=== PATIENT | female | born 1960 | race Caucasian/White ===

== ENCOUNTER 2018-06-15 05:03 | Inpatient (IN) ==
--- NOTE | 2018-05-23 08:53 | PAT Medication Instructions ---
Medication Instructions Date of Service May 23, 2018 Home Medications Magnesium 1,250 mg PO DAILY cholecalciferol (vitamin D3) 2,000 unit PO DAILY krill oil 1 cap PO DAILY multivitamin 1 tab PO DAILY vitamin B complex 1 tab PO DAILY vitamin K2 40 mcg PO DAILY STOP taking 2 weeks before surgery (or as soon as possible if surgery is within 2 weeks) krill oil 1 cap PO DAILY DO NOT take the morning of surgery Magnesium 1,250 mg PO DAILY cholecalciferol (vitamin D3) 2,000 unit PO DAILY multivitamin 1 tab PO DAILY vitamin B complex 1 tab PO DAILY vitamin K2 40 mcg PO DAILY Other Notes If you have any questions please call us at [phone] or [phone] or [phone] or [phone]
--- NOTE | 2018-05-23 10:30 | Anesthesiology Consultation ---
Date of Service May 23, 2018 Assessment & Plan (1) Encounter for pre-operative examination: Chart Review Chart Review: Acceptable Risk for Surgery and Patient seen in Pre Admission Testing Teaching & Discussion Pre-Anesthesia Teaching/Discussion Notes: Instructed NPO after midnight before surgery,except medications with 15 cc of water. Medication instructions provided according to the PAT guidelines. History Surgery Operation Date: 06/15/18 07:00 Proposed Procedures p Right Anterior Total Hip Replacement - Bryan Mauricio DO Height/Weight Height: 5 ft 6.5 in Weight: 94.9 kg Allergies Allergy/AdvReac Type Severity Reaction Status Date / Time Penicillins Allergy Intermediate RASH, Verified 05/23/18 10:31 FACIAL SWELLING poison gabriel extract Allergy Mild RASH Verified 05/23/18 10:31 lisinopril AdvReac Mild COUGH Verified 05/23/18 10:31 Medications Home Medications Medication Instructions Recorded Confirmed Last Taken Magnesium 1,250 mg PO DAILY 05/14/18 05/14/18 Unknown cholecalciferol (vitamin D3) 2,000 unit PO DAILY 05/14/18 05/14/18 Unknown [Vitamin D3] krill oil 1 cap PO DAILY 05/14/18 05/14/18 Unknown multivitamin 1 tab PO DAILY 05/14/18 05/14/18 Unknown vitamin B complex 1 tab PO DAILY 05/14/18 05/14/18 Unknown vitamin K2 40 mcg PO DAILY 05/14/18 05/14/18 Unknown Past Medical History Medical History Hypertension PRIOR BP MEDS DISCONTINUED GIVEN "GOOD" BP READINGS- PCP MONITORING Obesity Osteoarthritis Sleep apnea CPAP Uterine fibroid Varicose veins of left lower extremity Past Surgical History Surgical History History of hysterectomy History of tooth extraction History of total hip arthroplasty LEFT Past Anesthesia History No Family Hx of Anesthesia Complications and Other "Awareness" with dental procedures History of PONV No Motion Sickness Screening History of Motion Sickness: Yes Social History Smoking Status: Never smoker Do You Dip or Chew Tobacco: No Hx Alcohol Use: No Hx Substance Use: No substance use type: does not use Exercise / Class Metabolic Activity II 4-5 Yardwork/Stairs/Walk up hill Review of Systems Patient denies chest pain, shortness of breath, dyspnea on exertion, cough, wheezing, palpitations. Physical Exam Vital Signs VITALS BP 157/83 P 66 TEMP 98.31 SP02 95%RA RESP 16 Patient advised to followup with PCP regarding elevated BP. PHYSICAL Full neck and c-spine range of motion. Full TMJ range of motion. TMD 3 finger breaths Mallampati Score 2 Dentition: intact Lungs: clear throughout to auscultation Cardiac: regular rate and rhythm, no murmurs noted Spine: normal Carotid arteries: negative bruit Extremities: no edema Testing Electrocardiogram Date: 05/23/18 NSR at 63bpm. NS TWA. Chest X-Ray Date: 05/23/18 Findings: + NAD Stress Test Date: 07/16/12 Type: DSE Nonischemic stress ECHO/EKG. EF 60-65%. No RWMA. Grade I DD. No significant valvular disease. Laboratory Results 05/23/18 10:51 05/23/18 10:51 Blood Type O Positive 05/23/18 10:51 Antibody Screen NEGATIVE 05/23/18 10:51 PT 10.8 Seconds (9.0-12.0) 05/23/18 10:51 INR 1.1 (0.9-1.1) 05/23/18 10:51 APTT 28.6 Seconds (21.0-31.0) 05/23/18 10:51
--- NOTE | 2018-05-23 11:30 | XRay Report ---
XR chest Pre-admission PA/Lat HISTORY: Preop. COMPARISON: Chest 03/16/2014. FINDINGS: The lungs are clear. Cardiac silhouette is normal in size. No pleural effusions. No pneumot horax. IMPRESSION: No acute process. Electronically signed by: Marco Vázquez M.D. 05/23/2018 11:29 AM
[2018-05-23 12:38] LABS: Basophils # (auto) 0.03 K/uL (0-0.2); Basophils % (auto) 0.4 %; Eosinophils # (auto) 0.19 K/uL (0-0.5); Eosinophils % (auto) 2.4 %; Hematocrit (blood only) 40.4 % (37-47); Hemoglobin 13.3 g/dL (12.0-16.0); Immature Granulocytes # (auto) 0.01 K/uL (0.00-0.02); Immature Granulocytes % (auto) 0.1 %; Lymphocytes # (auto) 2.54 K/uL (1.2-3.4); Lymphocytes % (auto) 31.8 %; Mean Corpuscular Hgb Conc 32.9 g/dL (32-36); Mean Corpuscular Volume 91.8 fL (80-100); Mean Platelet Volume 10.7 fL (7.4-10.4); Monocytes # (auto) 0.82 K/uL (0.11-0.59); Monocytes % (auto) 10.3 %; Neutrophils # (auto) 4.39 K/uL (1.4-6.5); Platelet Count 269 K/uL (130-400); RDW Coefficient of Variation 13.2 % (11.5-14.5); RDW Standard Deviation 44.5 fL (36.4-46.3); White Blood Count 7.98 K/uL (4.8-10.8)
[2018-05-23 12:45] LABS: BUN Creatinine Ratio 16.4 (10-20); Creatinine Clr Calc Pharmacy 94.5 ml/min; Est GFR (African American) 99.3; Est GFR (Non-African American) 85.7; Potassium 4.1 mmol/L (3.5-5.1)
[2018-05-23 12:52] LABS: INR 1.1 (0.9-1.1); Partial Thromboplastin Ratio 1.1; Partial Thromboplastin Time 28.6 Seconds (21.0-31.0); Prothrombin Time 10.8 Seconds (9.0-12.0)
--- NOTE | 2018-06-13 20:45 | History & Physical Report ---
Date of Service June 13, 2018 Assessment & Plan (1) Osteoarthritis of right hip: We will proceed with a right anterior total hip arthroplasty. Postoperatively she will be started on aspirin for DVT prophylaxis. She will be kept overnight at the hospital for postop medical management. She plans to use energy physical therapy upon discharge. Present on Admission?: Yes History of Present Illness Chief Complaint: Primary osteoarthritis of the right hip Primary Care Provider: Kris Garcia MD Caitie is a pleasant 58-year-old female who is been dealing with chronic increasing right hip and groin pain. X-rays and clinical examination have been diagnostic for primary osteoarthritis of the right hip. After failing conservative treatment, she is elected proceed with a right total hip arthroplasty. She does have a history of a left hip arthroplasty done by Dr. Johnson 4 years ago. Allergies Allergy/AdvReac Type Severity Reaction Status Date / Time Penicillins Allergy Intermediate RASH, Verified 05/23/18 10:31 FACIAL SWELLING poison gabriel extract Allergy Mild RASH Verified 05/23/18 10:31 lisinopril AdvReac Mild COUGH Verified 05/23/18 10:31 Home Medications Home Medications Medication Instructions Recorded Confirmed Type Magnesium 1,250 mg PO DAILY 05/14/18 05/14/18 History cholecalciferol (vitamin D3) 2,000 unit PO DAILY 05/14/18 05/14/18 History [Vitamin D3] krill oil 1 cap PO DAILY 05/14/18 05/14/18 History multivitamin 1 tab PO DAILY 05/14/18 05/14/18 History vitamin B complex 1 tab PO DAILY 05/14/18 05/14/18 History vitamin K2 40 mcg PO DAILY 05/14/18 05/14/18 History Metoprolol 1 tab PO DAILY 06/11/18 History Past Med/Surg History Medical History Hypertension PRIOR BP MEDS DISCONTINUED GIVEN "GOOD" BP READINGS- PCP MONITORING Obesity Osteoarthritis Sleep apnea CPAP Uterine fibroid Varicose veins of left lower extremity Surgical History History of hysterectomy History of tooth extraction History of total hip arthroplasty LEFT Social History Preferred Language: Sinhala Communication Ability: Effective 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 Beliefs That Will Affect Care: None Current Living Situation: Spouse Other Information That Helps Us Care for You: No Feels Safe at Home: Yes Safety Concerns: Feels Safe At This Time Smoking Status: Never smoker Hx Alcohol Use: No Hx Substance Use: No Review of Systems All systems reviewed & are unremarkable except as noted in HPI & below Physical Exam Constitutional: WD/WN, vitals as above Eyes: PERRL, conjunctivae normal, anicteric sclerae ENMT: external ear and nose normal, oropharynx normal Neck: trachea midline, no thyromegaly Respiratory: normal respiratory effort Cardiovascular: RRR, no murmur, no edema Gastrointestinal (Abdomen): normal bowel sounds, soft, nontender, no hepatosplenomegaly Musculoskeletal: Physical examination of the right hip reveals decreased range of motion with flexion, internal and external rotation. There is significant groin pain with forced internal rotation of the hip his leg lengths are essentially equal. Psychiatric: A+Ox3, euthymic affect Results & Data Diagnostic Findings Radiographs of the right hip and pelvis demonstrate advanced osteoarthritis with joint space narrowing osteophyte formation and [id number] articulation.
[2018-06-15] MEDS ORDERED: ROPIVACAINE 0.5% HCL/PF 150 MG, BUPIVACAINE 0.5% MPF 30 ML, EPINEPHrine 30MG/30ML (OR U... INFIL SCH (06:00)
[2018-06-15] MEDS ORDERED: CEFAZOLIN 2000MG 2,000 MG/15 ML SYR IV SCH (06:00)
[2018-06-15] MEDS ORDERED: ACETAMINOPHEN 500 MG TAB PO SCH (06:00)
[2018-06-15] MEDS ORDERED: LR 60ML/HR IV SCH (06:00)
[2018-06-15] MEDS ORDERED: LR 500ML BOLUS, THEN 15ML/HR IV SCH (06:00)
[2018-06-15] MEDS ORDERED: FAMOTIDINE 20 MG TAB PO SCH (06:00)
[2018-06-15] MEDS ORDERED: GABAPENTIN 300 MG x 2 PO SCH (06:00)
[2018-06-15] MEDS ORDERED: TRANEXAMIC ACID 1,000 MG **IV Pre-op IV SCH (06:00)
[2018-06-15] MEDS ORDERED: BUPIVACAINE 0.5 % 5 MG/1 ML PF 10ML VIAL ONE (06:21)
--- NOTE | 2018-06-15 06:21 | History & Physical Bridge Note ---
Date of Service June 15, 2018 History & Physical Bridge Note I have examined the patient, reviewed the History & Physical and in the interval since the performance of the History & Physical I have noted the following changes of clinical significance: no changes noted
[2018-06-15] MEDS ORDERED: ORTHO JOINT ANESTHETIC ONE (06:27)
[2018-06-15] MEDS ORDERED: POVIDONE-IODINE OP SOLN 30 ML BTL ONE (06:27)
[2018-06-15] MEDS ORDERED: PROPOFOL IV EMULSION 10 MG/ML 20 ML VIAL IV ONE ×2 (06:36→08:12)
[2018-06-15] MEDS ORDERED: MIDAZOLAM HCL 1 MG/ML 2ML VIAL ONE ×2 (06:36→07:22)
[2018-06-15] MEDS ORDERED: LIDOCAINE HCL 2% 2 ML VIAL/AMP(20MG/ML) INFIL ONE (06:36)
[2018-06-15] MEDS ORDERED: fentaNYL citrate 100 MCG/2 ML VIAL ONE (06:36)
[2018-06-15] MEDS ORDERED: DEXAMETHASONE SOD INJ 4 MG/ML VIAL ONE (06:37)
[2018-06-15] MEDS ORDERED: ONDANSETRON INJ 2 MG/ML 2 ML VIAL ONE (06:37)
[2018-06-15] MEDS: TRANEXAMIC ACID 1,000 MG **IV Intra-op IV SCH ×2 (06:45→10:24)
[2018-06-15] MEDS ORDERED: PHENYLEPHRINE 100MCG/ML 5ML SYR IV PRN (07:00)
[2018-06-15] MEDS ORDERED: ONDANSETRON INJ 2 MG/ML 2 ML VIAL IV PRN ×2 (07:00→09:58)
[2018-06-15] MEDS ORDERED: HYDROmorphone INJ 1 MG/ML SYRINGE IV PRN (07:00)
[2018-06-15] MEDS ORDERED: ePHEDrine sulfate 50 MG/ML AMP IV PRN (07:00)
[2018-06-15] MEDS ORDERED: KETOROLAC 30 MG/ML VIAL IV PRN (07:00)
[2018-06-15] MEDS ORDERED: ATROPINE SULFATE 0.1 MG/ML 10ML SYR IV PRN (07:00)
[2018-06-15] MEDS ORDERED: PHENYLEPHRINE HCL 10 MG/ML VIAL ONE (07:48)
[2018-06-15] MEDS ORDERED: ePHEDrine sulfate 50 MG/ML SYR ONE (07:48)
--- NOTE | 2018-06-15 08:24 | Operative Report ---
Post Operative Report Pre & Post Diagnosis Operation Date: 06/15/18 07:00 Pre-Op Diagnosis: Right Hip Degenerative Joint Disease Post-Op Diagnosis: Right Hip Degenerative Joint Disease Procedure Operation Date: 06/15/18 07:00 Actual Procedures p Right Anterior Total Hip Replacement(Right) - Bryan Mauricio DO Surgeon Bryan Mauricio DO Certified Orthotist Practice Manager Bryan Rizzo PAC Estimated Blood Loss 150 Findings Consistent with Post-Op Diagnosis Specimens None Complications none Disposition Disposition: Recovery Room Indications 8-year-old female who is been dealing with chronic increasing right hip and groin pain. X-rays and clinical examination were diagnostic for primary osteoarthritis of the right hip. After failing conservative treatment, she has elected to proceed with a right total hip arthroplasty. Description of Procedure Implants used Biomet Taperloc total hip arthroplasty system with a size 14 standard offset Taperloc stem, a 52 mm G7 cup with a 25mm screw, an E1 polyethylene liner, a 36 mm ceramic head with a +3 neck. Patient arrived at the hospital for the above procedure. They were seen in the preoperative holding area and the operative extremity was identified and signed. They were given a spinal anesthetic. They were given a preoperative antibiotic and TXA. They were taken back To the operating room and laid on the table in the supine position. The leg was brought out through a Puristst leg positioner. The hip was then prepped and draped in sterile fashion. A timeout was done and the patient in upper extremities properly identified. An anterior approach was used. Dissection was taken down through the fascia and the tensor muscle belly was retracted laterally and the rectus was retracted medially. The circumflex vessels were identified and ligated. The capsule was then incised and tagged for later repair. The femoral neck was then cut and the femoral head was removed. The acetabulum was exposed. Time was spent doing a complete circumferential labral release. Sequential reaming of the acetabulum up to a size 51 reamer was done. Final reamings were done under fluoroscopy to ensure appropriate version. A Biomet 52 mm G7 cup was then impacted into place. A single 25 mm screw was placed. The E1 polyethylene liner was then snapped into place. Surrounding soft tissues were then injected with 100 cc of an orthopedic pain control cocktail. The proximal femur was then exposed. Sequential broaching up to a size 14 broach was done. Off that broach a size 36 head with a +3 neck was trialed. The hip was reduced and fluoroscopic images showed anatomic alignment of the imp lants in acceptable length. The broach was removed. The final size 14 standard offset Taperloc stem was then impacted into place. A ceramic 36 mm head with a +3 neck was then impacted into place in the hip was reduced. Final fluoroscopic images showed anatomic reduction of the hip. The capsule was then closed with #1 Vicryl suture. A dilute betadyne lavage was then done for 3 minutes. The j oint was then irrigated with normal saline solution. The fascia was closed with #1 PDS suture. Skin was closed with 2-0 Vicryl, gianna, and a Mary VAC dressing. The patient was then transferred to a hospital bed and taken to the post anesthesia care unit in stable condition. They tolerated the procedure well. I attest to the content of the Intraoperative Record and any orders documented therein. Any exceptions are noted below.
--- NOTE | 2018-06-15 08:30 | Fluoroscopy Report ---
INTRAOPERATIVE RADIOGRAPHS CLINICAL HISTORY: Right hip arthroplasty placement. Fluoroscopy time: 19 seconds. FINDINGS: 2 spot fluoroscopic views of the right hip are correlated with radiograph dated 07/18/2012. The initial image shows surgical absence of the proximal femur with the acetabular cup in place. The second image shows a right hip arthroplasty in near anatomic alignment. There is no evidence of fract ure on these fluoroscopic views. IMPRESSION: Intraoperative images from a right humeral arthroplasty procedure as above. Electronically signed by: Phi Sotomayor M.D. 06/15/2018 8:29 AM
--- NOTE | 2018-06-15 09:37 | XRay Report ---
XR hip 1V RT w pelvis CLINICAL HISTORY: 58 years-old Female presenting with IN PACU - A/P PELVIS and LATERAL HIP . TECHNIQUE: Single frontal view of the pelvis and crosstable lateral view of the right hip were obtain ed. COMPARISON: 07/18/2012. FINDINGS: There has been interval total right hip arthroplasty. Expected soft tissue emphysema and overlying sk in gianna. No malalignment or periprosthetic fracture. Redemonstration of the total left hip arthrop lasty. The bony pelvis is otherwise intact. IMPRESSION: Expected postsurgical appearance status post total right hip arthroplasty. Electronically signed by: Viraj Licea M.D. 06/15/2018 9:36 AM
[2018-06-15] MEDS ORDERED: HYDROmorphone INJ 0.5 MG/0.5 ML SYR IV PRN (09:58)
[2018-06-15] MEDS ORDERED: NALOXONE HCL 0.4 MG/1 ML VIAL/CARP IV PRN (09:58)
[2018-06-15] MEDS ORDERED: MAGNESIUM HYDROXIDE SUSP 30 ML UDC PO PRN (09:58)
[2018-06-15] MEDS ORDERED: METOCLOPRAMIDE HCL INJ 5 MG/ML 2 ML VIAL IV PRN (09:58)
[2018-06-15] MEDS ORDERED: BISACODYL 10 MG SUPP PR PRN (09:58)
[2018-06-15] MEDS ORDERED: SODIUM CHLORIDE 0.9% 1000ML 1,000 ML IV SCH (10:30)
--- NOTE | 2018-06-15 10:35 | Anesthesiology Progress Note ---
Date of Service June 15, 2018 Anesthesia Post Procedure Vital Signs Vital Signs: Temp Pulse Pulse Pulse Resp BP Pulse Ox 06/15/18 10:22 36.5 C 63 18 159/92 H 96 06/15/18 09:45 36.5 C 61 16 137/76 100 06/15/18 09:27 66 15 108/63 96 06/15/18 09:15 66 15 123/69 98 06/15/18 09:05 66 17 123/65 100 06/15/18 08:55 73 16 123/68 97 06/15/18 08:45 74 17 124/53 L 100 06/15/18 08:39 36.6 C 79 16 118/65 99 06/15/18 05:15 36.8 C 84 18 168/94 H 99 Pain Intensity Right Hip: Pain Intensity: 8 Notes Mental Status: alert / awake / arousable Patient Amnestic to Procedure: Yes Nausea / Vomiting: adequately controlled Pain: adequately controlled Airway Patency, RR, SpO2: stable & adequate BP & HR: stable & adequate Hydration State: stable & adequate Neuraxial Anesthesia: was administered and sensory block is resolving Anesthetic Complications: no major complications apparent
[2018-06-15] MEDS: MULTIVITAMIN TAB PO SCH (11:04)
[2018-06-15] MEDS: DOCUSATE SODIUM 100 MG CAP PO SCH ×2 (11:04→20:37)
[2018-06-15] MEDS: ASPIRIN 81 MG ECTAB PO SCH ×2 (12:20→20:37)
[2018-06-15] MEDS: KETOROLAC 30 MG/ML VIAL IV SCH ×3 (12:20→23:24)
[2018-06-15] MEDS: OXYCODONE HCL IR 5 MG TAB (IMMEDIATE RELEASE) PO PRN (12:56)
[2018-06-15] MEDS: ACETAMINOPHEN 500 MG TAB PO SCH ×2 (12:56→22:22)
[2018-06-15] MEDS: CEFAZOLIN 2000MG 2,000 MG/15 ML SYR IV SCH ×2 (14:28→22:22)
[2018-06-15] MEDS ORDERED: SENNA 8.6 MG TAB PO SCH (21:00)
[2018-06-16] MEDS: ACETAMINOPHEN 500 MG TAB PO SCH (05:32)
[2018-06-16] MEDS: KETOROLAC 30 MG/ML VIAL IV SCH ×2 (05:32→12:08)
[2018-06-16 06:13] LABS: Basophils # (auto) 0.02 K/uL (0-0.2); Basophils % (auto) 0.1 %; Eosinophils # (auto) 0.07 K/uL (0-0.5); Eosinophils % (auto) 0.5 %; Hematocrit (blood only) 32.5 % (37-47); Hemoglobin 10.7 g/dL (12.0-16.0); Immature Granulocytes # (auto) 0.03 K/uL (0.00-0.02); Immature Granulocytes % (auto) 0.2 %; Lymphocytes # (auto) 2.46 K/uL (1.2-3.4); Lymphocytes % (auto) 18.2 %; Mean Corpuscular Hgb Conc 32.9 g/dL (32-36); Mean Corpuscular Volume 91.8 fL (80-100); Mean Platelet Volume 10.3 fL (7.4-10.4); Monocytes # (auto) 1.45 K/uL (0.11-0.59); Monocytes % (auto) 10.7 %; Neutrophils # (auto) 9.48 K/uL (1.4-6.5); Neutrophils % (auto) 70.3 %; Platelet Count 231 K/uL (130-400); RDW Standard Deviation 43.9 fL (36.4-46.3); Red Blood Count 3.54 M/uL (4.2-5.4); White Blood Count 13.51 K/uL (4.8-10.8)
[2018-06-16 06:26] LABS: Calcium 8.8 mg/dl (8.5-10.1); Creatinine Clr Calc Pharmacy 96.9 ml/min; Est GFR (African American) 102.6; Est GFR (Non-African American) 88.5; Potassium 3.3 mmol/L (3.5-5.1)
--- NOTE | 2018-06-16 08:44 | Orthopedic Progress Note ---
Date of Service June 16, 2018 Assessment & Plan (1) Osteoarthritis of right hip: Overall she is doing very well. She will be seen by physical therapy this morning for ambulation. She is not having much pain in the hip. She is on aspirin for DVT prophylaxis. She plans to go home later today with [facility] physical therapy. She will follow-up with orthopedics in 2 weeks. Present on Admission?: Yes Carey Blood was seen and examined at bedside this morning. Overall she is doing very well. She is not having much pain in the right hip. She is happy with her progress at this point. She has no complaints. She is been ambulating around the room without any issues. Physical Exam Vital Signs (Past 24 Hours): Last Vital Signs Temp 36.8 C 06/16/18 07:36 Pulse 69 06/16/18 07:36 Resp 18 06/16/18 07:36 BP 122/72 06/16/18 07:36 Pulse Ox 97 06/16/18 07:36 Musculoskeletal: On physical examination of the right hip, the Mary VAC dressings to suction. Her leg lengths are equal. She is active dorsiflexion and plantarflexion of the right ankle. Sensations intact throughout. Results & Data Laboratory Results H & H 05/23/18 06/16/18 Range/Units 10:51 05:23 Hgb 13.3 10.7 L (12.0-16.0) g/dL Hct 40.4 32.5 L (37-47) % Coagulation 05/23/18 Range/Units 10:51 INR 1.1 (0.9-1.1) Diagnostic Findings Postoperative x-rays of the right hip show the prosthesis to be in anatomic alignment without any evidence of fracture, dislocation, or loosening.
--- NOTE | 2018-06-16 08:46 | Discharge Summary ---
Date of Service June 16, 2018 Admission HPI Per Admitting Provider Caitie is a pleasant 58-year-old female who is been dealing with chronic increasing right hip and groin pain. X-rays and clinical examination have been diagnostic for primary osteoarthritis of the right hip. After failing conservative treatment, she is elected proceed with a right total hip arthroplasty. She does have a history of a left hip arthroplasty done by Dr. Johnson 4 years ago. Specialty Data Orthopedic H & H 05/23/18 06/16/18 Range/Units 10:51 05:23 Hgb 13.3 10.7 L (12.0-16.0) g/dL Hct 40.4 32.5 L (37-47) % Coagulation 05/23/18 Range/Units 10:51 INR 1.1 (0.9-1.1) Discharge Data Consultations 06/16/18 08:00 Consult Case Management - Discharge Planning Routine Procedures Performed Operation Date: 06/15/18 07:00 Actual Procedures p Right Anterior Total Hip Replacement(Right) - Bryan Mauricio DO Hospital Course (1) Osteoarthritis of right hip: On June 15, 2018 Caitie arrived at [facility] and underwent a right anterior total hip arthroplasty without complication. She had a spinal anesthetic. Postoperatively she was started on aspirin for DVT prophylaxis and discharge her general orthopedic floors. Her hospital course was uneventful. On postop day #1 her H&H was stable and her pain was well controlled. She was able to ambulate well with physical therapy. She was then discharged to home with [place] [facility]. She will follow-up with orthopedics in 2 weeks. Discharge Instructions Home Medications Medication Instructions Recorded Confirmed cholecalciferol (vitamin D3) 2,000 unit PO DAILY 05/14/18 05/14/18 [Vitamin D3] krill oil 1 cap PO DAILY 05/14/18 06/15/18 magnesium 1,250 mg PO DAILY 05/14/18 06/15/18 multivitamin 1 tab PO DAILY 05/14/18 06/15/18 vitamin B complex 1 tab PO DAILY 05/14/18 06/15/18 vitamin K2 40 mcg PO DAILY 05/14/18 06/15/18 metoprolol succinate 25 mg PO DAILY 06/11/18 06/15/18 Previous Rx's Medication Instructions Recorded aspirin [Ecotrin Low Strength] 81 mg PO BID #84 tab 06/16/18 oxycodone 5 - 10 mg PO Q4H PRN #40 tab 06/16/18
[2018-06-16] MEDS: DOCUSATE SODIUM 100 MG CAP PO SCH (08:47)
[2018-06-16] MEDS: ASPIRIN 81 MG ECTAB PO SCH (08:47)
[2018-06-16] MEDS: MULTIVITAMIN TAB PO SCH (08:47)
[2018-06-16] MEDS ORDERED: METOPROLOL SUCC 25MG EXT REL TAB PO SCH (09:00)
[2018-06-16] MEDS: OXYCODONE HCL IR 5 MG TAB (IMMEDIATE RELEASE) PO PRN (13:15)
== END 2018-06-16 13:45 | disposition home or self-care (01) | DRG 470 ==
LOC: ASU 05:03 → 3E 08:27

== ENCOUNTER 2018-12-14 06:38 | Inpatient (IN) ==
--- NOTE | 2018-11-20 11:15 | Anesthesiology Consultation ---
Date of Service November 20, 2018 Assessment & Plan (1) Encounter for pre-operative examination: - No anesthesia records available re: intubation. Chart Review Chart Review: Acceptable Risk for Surgery and Patient seen in Pre Admission Testing Consults Requested none Teaching & Discussion Pre-Anesthesia Teaching/Discussion Notes: Instructed NPO after midnight before surgery, except medications with 15 cc of water. Medication instructions provided according to the PAT guidelines. History Surgery Operation Date: 12/14/18 12:30 Proposed Procedures p Left Total Knee Arthroplasty - Bryan Mauricio DO Height/Weight Height: 5 ft 6.5 in Weight: 97.4 kg Allergies Allergy/AdvReac Type Severity Reaction Status Date / Time Penicillins Allergy Unknown RASH, Verified 11/20/18 09:00 FACIAL & NECK SWELLING poison gabriel extract Allergy Unknown RASH Verified 11/20/18 09:00 lisinopril AdvReac Unknown COUGH Verified 11/20/18 09:00 Medications Home Medications Medication Instructions Recorded Confirmed Last Taken cholecalciferol (vitamin D3) 2,000 unit PO DAILY 05/14/18 11/20/18 Unknown [Vitamin D3] magnesium 1,250 mg PO DAILY 05/14/18 11/20/18 2 Weeks Ago ~06/01/18 multivitamin 1 tab PO DAILY 05/14/18 11/20/18 2 Weeks Ago ~06/01/18 vitamin B complex 1 tab PO DAILY 05/14/18 11/20/18 1 Week Ago ~06/08/18 vitamin K2 40 mcg PO DAILY 05/14/18 11/20/18 1 Week Ago ~06/08/18 metoprolol succinate 25 mg PO HS 06/11/18 11/20/18 11/19/18 aspirin [Ecotrin Low Strength] 81 mg PO BID #84 tab 06/16/18 11/20/18 Unknown omega 7-sgp-[id number]-fish oil [Fish Oil] 1 cap PO BID 11/20/18 11/20/18 Unknown valsartan 40 mg PO HS 11/20/18 11/20/18 11/19/18 Past Medical History Medical History Hypertension Nausea and vomiting after administration of anesthetic agent Obesity Osteoarthritis Sleep apnea CPAP Uterine fibroid HX OF Varicose veins of left lower extremity Exercise / Class Metabolic Activity II 4-5 Yardwork/Stairs/Walk up hill (Walks daily, but limited by knee pain. Can climb FOS with railing due to knee pain. Mows grass with push mower. Denies CP or SOB. ) Past Family History Family History Daughter Family history of reaction to anesthesia Brother Family history of borderline diabetes mellitus Father Family history of bladder cancer Mother Family history of brain aneurysm Past Surgical History Surgical History History of hysterectomy History of tooth extraction History of total hip arthroplasty LEFT History of total right hip arthroplasty Past Anesthesia History No Hx of Anesthesia Complications and No Family Hx of Anesthesia Complications Patient does tend to need more novocaine than the average person during dental procedures. History of PONV History of PONV and Hx of Motion Sickness Social History Smoking Status: Never smoker Do You Dip or Chew Tobacco: No Hx Alcohol Use: No Hx Substance Use: No substance use type: does not use Review of Systems Patient denies chest pain, shortness of breath, dyspnea on exertion, reflux, cough, wheezing, palpitations. +Joint pain (knee, ankles) Physical Exam Vital Signs BP: 128/85 P: 68 R: 16 T: 98.5 SPO2: 98% on RA ENMT Thyromental Distance: > or= 3.5 Finger Breadths (3.5) Mallampati Class: I Neck normal visual inspection and trachea midline; neck extension not limited Respiratory normal respiratory effort Auscultation: lungs clear to auscultation bilaterally Cardiovascular Rate/Rhythm: regular rate and regular rhythm Heart Sounds: no murmur Vessels: no carotid bruit Neurologic moves all extremities Psychiatric Orientation: alert and oriented x 3 Testing Laboratory Results 11/20/18 11:50 11/20/18 11:50 PT 10.8 Seconds (9.0-12.0) 11/20/18 11:50 INR 1.1 (0.9-1.1) 11/20/18 11:50 APTT 27.3 Seconds (21.0-31.0) 11/20/18 11:50 Blood Type O Positive 11/20/18 11:50 Antibody Screen NEGATIVE 11/20/18 11:50 Electrocardiogram Date: 05/23/18 Findings: + NSR @ (63) and + no change from (03/16/14) Nonspecific T wave abnormality in inferior and lateral leads Chest X-Ray Date: 05/23/18 Findings: + NAD Stress Test Date: 09/27/18 Type: DSE Findings: + WNL Resting LV Function: normal Valvular Disease: no significant valvular disease The dobutamine stress echo is negative for inducible ischemia. The left ventricular cavity size is normal. The LV wall thickness is normal. The left ventricular wall motion is normal. The left ventricular diastolic function is mildly abnormal (grade I). The proximal ascending thoracic aorta is mildly enlarged. Mild mitral regurgitation, tricuspid regurgitation. Equivocal 1-2mm upsloping ST segment depression is noted in the inferior and lateral leads during stress portion. Baseline ECG was essentially normal. The stress test was terminated due to 85% maximal heart rate being achieved. No symptoms were noted.
--- NOTE | 2018-11-20 11:15 | PAT Medication Instructions ---
Medication Instructions Date of Service November 20, 2018 Home Medications Medication Instructions Recorded aspirin [Ecotrin Low Strength] 81 mg PO BID #84 tab 06/16/18 cholecalciferol (vitamin D3) [Vitamin D3] 2,000 unit PO DAILY magnesium 1,250 mg PO DAILY multivitamin 1 tab PO DAILY vitamin B complex 1 tab PO DAILY vitamin K2 40 mcg PO DAILY metoprolol succinate 25 mg PO HS aspirin [Ecotrin Low Strength] 81 mg PO BID omega 1-nuo-wgh-fish oil [Fish Oil] 1 cap PO BID valsartan 40 mg PO HS ASK your surgeon for instructions aspirin [Ecotrin Low Strength] 81 mg PO BID STOP taking 2 weeks before surgery omega 1-xqo-ngl-fish oil [Fish Oil] 1 cap PO BID DO NOT take the morning of surgery cholecalciferol (vitamin D3) [Vitamin D3] 2,000 unit PO DAILY magnesium 1,250 mg PO DAILY multivitamin 1 tab PO DAILY vitamin B complex 1 tab PO DAILY vitamin K2 40 mcg PO DAILY Take morning of surgery NOTHING TO EAT OR DRINK AFTER MIDNIGHT Take evening before surgery metoprolol succinate 25 mg PO HS valsartan 40 mg PO HS Other Notes If you have any questions please call us at [phone] or [phone] or [phone] or [phone]
[2018-11-20 12:52] LABS: Basophils # (auto) 0.02 K/uL (0-0.2); Basophils % (auto) 0.3 %; Eosinophils # (auto) 0.15 K/uL (0-0.5); Eosinophils % (auto) 2.2 %; Hematocrit (blood only) 41.3 % (37-47); Hemoglobin 13.7 g/dL (12.0-16.0); Immature Granulocytes # (auto) 0.01 K/uL (0.00-0.02); Immature Granulocytes % (auto) 0.1 %; Lymphocytes # (auto) 1.87 K/uL (1.2-3.4); Lymphocytes % (auto) 27.6 %; Mean Corpuscular Hgb Conc 33.2 g/dL (32-36); Mean Corpuscular Volume 92.4 fL (80-100); Mean Platelet Volume 10.4 fL (7.4-10.4); Monocytes # (auto) 0.61 K/uL (0.11-0.59); Neutrophils # (auto) 4.12 K/uL (1.4-6.5); Neutrophils % (auto) 60.8 %; Platelet Count 236 K/uL (130-400); RDW Coefficient of Variation 13.4 % (11.5-14.5); RDW Standard Deviation 44.9 fL (36.4-46.3); Red Blood Count 4.47 M/uL (4.2-5.4); White Blood Count 6.78 K/uL (4.8-10.8)
[2018-11-20 12:59] LABS: Creatinine Clr Calc Pharmacy 99.6 ml/min; Est GFR (African American) 104.2; Est GFR (Non-African American) 89.9; Potassium 4.4 mmol/L (3.5-5.1)
[2018-11-20 13:04] LABS: INR 1.1 (0.9-1.1); Partial Thromboplastin Time 27.3 Seconds (21.0-31.0); Prothrombin Time 10.8 Seconds (9.0-12.0)
--- NOTE | 2018-12-14 06:32 | History & Physical Report ---
Date of Service December 14, 2018 Assessment & Plan (1) Osteoarthritis of left knee: We will proceed with a left total knee arthroplasty. Postoperatively she will be placed on aspirin for DVT prophylaxis. She will be kept overnight at the hospital for postoperative medical management. She plans [facility] upon discharge. Present on Admission?: Yes History of Present Illness Chief Complaint: Primary osteoarthritis of the left knee Primary Care Provider: Angeles Moreno MD Caitie is a pleasant 58-year-old female who I did a hip replacement on about 5 months ago. She did very well with that. Unfortunately she is been dealing with a lot of left knee pain. X-rays and clinical examination have been diagnostic for primary osteoarthritis of the left knee. After failing conservative treatment, including multiple injections, she has elected to proceed with a left total knee arthroplasty. Allergies Allergy/AdvReac Type Severity Reaction Status Date / Time Penicillins Allergy Unknown RASH, Verified 11/20/18 09:00 FACIAL & NECK SWELLING poison gabriel extract Allergy Unknown RASH Verified 11/20/18 09:00 lisinopril AdvReac Unknown COUGH Verified 11/20/18 09:00 Home Medications Home Medications Medication Instructions Recorded Confirmed Type cholecalciferol (vitamin D3) 2,000 unit PO DAILY 05/14/18 11/20/18 History [Vitamin D3] magnesium 1,250 mg PO DAILY 05/14/18 11/20/18 History multivitamin 1 tab PO DAILY 05/14/18 11/20/18 History vitamin B complex 1 tab PO DAILY 05/14/18 11/20/18 History vitamin K2 40 mcg PO DAILY 05/14/18 11/20/18 History metoprolol succinate 25 mg PO HS 06/11/18 11/20/18 History aspirin [Ecotrin Low Strength] 81 mg PO BID #84 tab 06/16/18 11/20/18 Rx omega 0-ovv-wbb-fish oil [Fish Oil] 1 cap PO BID 11/20/18 11/20/18 History valsartan 40 mg PO HS 11/20/18 11/20/18 History Past Med/Surg History Medical History Hypertension Obesity Osteoarthritis Sleep apnea CPAP Uterine fibroid HX OF Varicose veins of left lower extremity Surgical History History of hysterectomy History of tooth extraction History of total hip arthroplasty LEFT History of total right hip arthroplasty Nausea and vomiting after administration of anesthetic agent Family History Daughter Family history of reaction to anesthesia Brother Family history of borderline diabetes mellitus Father Family history of bladder cancer Mother Family history of brain aneurysm Social History Preferred Language: Vietnamese Communication Ability: Effective 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 Beliefs That Will Affect Care: None marital status: Current Living Situation: Family Feels Safe at Home: Yes Smoking Status: Never smoker Second Hand Exposure: No ; Hx Alcohol Use: No Hx Substance Use: No Review of Systems All systems reviewed & are unremarkable except as noted in HPI & below Physical Exam Constitutional: WD/WN, vitals as above Eyes: PERRL, conjunctivae normal, anicteric sclerae ENMT: external ear and nose normal, oropharynx normal Neck: trachea midline, no thyromegaly Respiratory: normal respiratory effort Cardiovascular: RRR, no murmur, no edema Gastrointestinal (Abdomen): normal bowel sounds, soft, nontender, no hepa tosplenomegaly Musculoskeletal: On physical examination of the left knee there is a trace effusion. There is near full range of motion and no evidence of instability. There is significant tenderness palpation along the medial and lateral joint lines and over the distal femoral condyles. Psychiatric: A+Ox3, euthymic affect Results & Data Diagnostic Findings Radiographs of the left knee demonstrate advanced osteoarthritis with joint space narrowing osteophyte formation and [id number] articulation.
--- NOTE | 2018-12-14 06:33 | History & Physical Bridge Note ---
Date of Service December 14, 2018 History & Physical Bridge Note I have examined the patient, reviewed the History & Physical and in the interval since the performance of the History & Physical I have noted the following changes of clinical significance: no changes noted
[~2018-12-14 06:38] MED LIST: ACETAMINOPHEN 500 MG TAB PO SCH; FAMOTIDINE 20 MG TAB PO SCH; GABAPENTIN 600 MG DOSE PO SCH; LR 500ML BOLUS, THEN 15ML/HR IV SCH; LR 60ML/HR IV SCH; ROPIVACAINE 0.5% HCL/PF 150 MG, BUPIVACAINE 0.5% MPF 30 ML, EPINEPHrine 30MG/30ML (OR U... INSTIL SCH; SCOPOLAMINE 1.5 MG TDSY TD SCH; TRANEXAMIC ACID 1,000 MG **IV Intra-op IV SCH; TRANEXAMIC ACID 1,000 MG **IV Pre-op IV SCH; VANCOMYCIN HCL 1,500 MG in SODIUM CHLORIDE 0.9% 500 ML IV SCH
[2018-12-14] MEDS ORDERED: BUPIVACAINE 0.5 % 5 MG/1 ML PF 10ML VIAL ONE (07:02)
[2018-12-14] MEDS ORDERED: ROPIVACAINE 0.5% 5 MG/ML 30 ML VIAL ONE (07:02)
[2018-12-14] MEDS ORDERED: BUPIVACAINE 0.25% 30 ML VIAL ONE (07:04)
[2018-12-14] MEDS ORDERED: MIDAZOLAM HCL 1 MG/ML 2ML VIAL ONE ×2 (07:39)
[2018-12-14] MEDS ORDERED: fentaNYL citrate 100 MCG/2 ML VIAL ONE (07:39)
[2018-12-14] MEDS ORDERED: ORTHO JOINT ANESTHETIC ONE (09:04)
[2018-12-14] MEDS ORDERED: ONDANSETRON INJ 2 MG/ML 2 ML VIAL IV PRN ×2 (09:12→12:03)
[2018-12-14] MEDS ORDERED: fentaNYL citrate 100 MCG/2 ML VIAL IV PRN (09:12)
[2018-12-14] MEDS ORDERED: ATROPINE SULFATE 0.1 MG/ML 10ML SYR IV PRN (09:12)
[2018-12-14] MEDS ORDERED: ePHEDrine sulfate 50 MG/ML AMP IV PRN (09:12)
[2018-12-14] MEDS ORDERED: PROPOFOL IV EMULSION 10 MG/ML 20 ML VIAL IV ONE (09:47)
[2018-12-14] MEDS ORDERED: ONDANSETRON INJ 2 MG/ML 2 ML VIAL ONE (09:47)
[2018-12-14] MEDS ORDERED: LIDOCAINE HCL 2% 2 ML VIAL/AMP(20MG/ML) INFIL ONE (09:47)
--- NOTE | 2018-12-14 10:02 | Anesthesiology Progress Note ---
Date of Service December 14, 2018 Anesthesia Post Procedure Vital Signs Vital Signs: Temp Pulse Resp BP Pulse Ox 12/14/18 07:32 36.8 C 68 18 156/89 H 96 Transfer of Care Handoff Completed per policy Notes Mental Status: alert / awake / arousable and participated in evaluation Nausea / Vomiting: adequately controlled Pain: adequately controlled Airway Patency, RR, SpO2: stable & adequate BP & HR: stable & adequate Hydration State: stable & adequate Neuraxial Anesthesia: was administered and sensory block is resolving Anesthetic Complications: no major complications apparent and Pt Satisfied with anesthetic care
--- NOTE | 2018-12-14 10:51 | Operative Report ---
Post Operative Report Pre & Post Diagnosis Operation Date: 12/14/18 08:50 Pre-Op Diagnosis: LEFT KNEE DEGENERATIVE JOINT DISEASE Post-Op Diagnosis: LEFT KNEE DEGENERATIVE JOINT DISEASE Procedure Operation Date: 12/14/18 08:50 Actual Procedures p Left Total Knee Arthroplasty(Left) - Bryan Mauricio DO Surgeon Bryan Mauricio DO Chief Ii Dispatcher Bryan Rizzo PAC Estimated Blood Loss 20 Findings Consistent with Post-Op Diagnosis Specimens Left femoral and tibial bone Complications none Disposition Disposition: Recovery Room Indications Caitie is a pleasant 58-year-old female who presented my office with complaints of left knee pain. X-rays and clinical examination were diagnostic for primary osteoarthritis of left knee. After failing conservative treatment, she elected to proceed with a left total knee arthroplasty. Description of Procedure Implants used: I used a [employer] Vanguard total knee arthroplasty system with a size 67.5 femur, 71 tibia, 31 patella, and a size 12 PS polyethylene bearing. All components were cemented in place with Palacos G cement. The patient arrived [facility] [address] for the above procedure. There were seen in the preoperative holding area and the operative extremity was identified and signed. There were given a preoperative antibiotic, a spinal anesthetic and an adductor nerve block. There were taken back to the operating room and laid on the table in supine position. There were given basic sedation. The operative knee was then prepped and draped in sterile fashion. A timeout was done, and the patient and the operative extremity was properly identified. A midline incision was made directly over the patella. Dissection was taken down to the extensor mechanism. A subvastus arthrotomy was used. The medial retinaculum was released and the fat pad was mostly left intact. The knee was flexed and the ACL, PCL, and meniscus were removed. A drill was sent down the center of the femoral canal followed by an intramedullary julia. Off that julia a distal femoral cutting block was placed. 9 mm was resected off the distal femur at 5 of valgus. A posterior referencing AP sizing guide was then placed on the distal femur. The femur measured to be a size 67.5. 2 drill holes were placed in 3 of external rotation. A 4-in-1 cutting block was then impacted into place. Anterior posterior and chamfer cuts were then made. The posterior stabilizing box guide was then impacted into place and the box was resected for the posterior stabilizing component. The proximal tibia was then exposed. A drill was sent down the center of the tibial canal followed by an intramedullary julia. Off that julia a proximal tibial resection guide was placed. The proximal tibia was then resected. The tibia measured to be a size 71. The tibial plate was then placed in the appropriate rotation and the tibia was punched. The posterior aspect of the knee was then opened up and any additional meniscus fragments and osteophytes were removed. Trial components were then placed. I used a size 12 PS polyethylene insert. The knee was brought through a full range of motion and felt to be stable. The patella was then everted and 8 mm was resected off the posterior aspect of the patella. The patella measured to be a size 31. 3 peg holes were then drilled. A trial patella was placed. The knee was once again brought through a full range of motion and felt to be stable. Trial components were then removed. The surrounding soft tissues were injected with 100 cc of an orthopedic pain control cocktail. All components were then cemented into place with Palacos G cement. The final polyethylene insert was then snapped into place and the anterior bar was locked. Once cement was dry the tourniquet was deflated. Hemostasis was obtained. A dilute betadyne lavage was then done for 3 minutes. The joint was then irrigated with normal saline solution. The subvastus arthrotomy was then closed with #1 Vicryl suture. The skin was closed with 2-0 Vicryl, 3-0V lock suture, and gianna. A soft compressive dressing was placed. The patient was then transferred to a hospital bed and taken to the postanesthesia care unit in stable condition. They tolerated the procedure well. I attest to the content of the Intraoperative Record and any orders documented therein. Any exceptions are noted below.
--- NOTE | 2018-12-14 11:35 | XRay Report ---
XR knee LT 2V routine HISTORY: 58 years-old Female Surgical Post Op left knee total joint arthroplasty COMPARISON: Left knee radiographs 08/07/2018 TECHNIQUE: 2 views of the left knee FINDINGS: Left knee total joint arthroplasty and patella resurfacing. Satisfactory alignment without acute frac ture. Anterior midline skin gianna are noted along with expected postsurgical soft tissue swelling a nd deep tissue air with surgical drainage catheter. IMPRESSION: Left knee total joint arthroplasty and patella resurfacing demonstrates satisfactory alig nment. The above report was generated using voice recognition software. It may contain grammatical, syntax o r spelling errors. Electronically signed by: Amado Crabtree M.D. 12/14/2018 11:34 AM
--- NOTE | 2018-12-14 11:36 | Anesthesiology Progress Note ---
Date of Service December 14, 2018 Anesthesia Post Procedure Vital Signs Vital Signs: Temp Pulse Pulse Pulse Resp BP BP 12/14/18 11:31 59 L 12 103/68 12/14/18 11:30 62 18 12/14/18 11:27 57 L 18 12/14/18 11:25 60 17 135/75 12/14/18 11:24 60 15 134/77 12/14/18 11:20 59 L 18 123/78 12/14/18 11:16 59 L 16 130/70 12/14/18 11:15 61 14 12/14/18 11:10 63 23 125/76 12/14/18 11:08 65 16 131/70 12/14/18 11:07 36.4 C L 65 68 18 131/70 12/14/18 07:32 36.8 C 68 18 156/89 H Pulse Ox 12/14/18 11:31 98 12/14/18 11:30 99 12/14/18 11:27 100 12/14/18 11:25 94 12/14/18 11:24 98 12/14/18 11:20 99 12/14/18 11:16 100 12/14/18 11:15 97 12/14/18 11:10 96 12/14/18 11:08 94 12/14/18 11:07 94 12/14/18 07:32 96 Pain Intensity Left Knee: Pain Intensity: 0 Transfer of Care Handoff Completed per policy Notes Mental Status: alert / awake / arousable and participated in evaluation Nausea / Vomiting: adequately controlled Pain: adequately controlled Airway Patency, RR, SpO2: stable & adequate BP & HR: stable & adequate Hydration State: stable & adequate Neuraxial Anesthesia: was administered and sensory block is resolving Anesthetic Complications: no major complications apparent and Pt Satisfied with anesthetic care
[2018-12-14] MEDS ORDERED: METOCLOPRAMIDE HCL INJ 5 MG/ML 2 ML VIAL IV PRN (12:03)
[2018-12-14] MEDS ORDERED: HYDROmorphone INJ 0.5 MG/0.5 ML SYR IV PRN (12:03)
[2018-12-14] MEDS ORDERED: MAGNESIUM HYDROXIDE SUSP 30 ML UDC PO PRN (12:03)
[2018-12-14] MEDS ORDERED: BISACODYL 10 MG SUPP PR PRN (12:03)
[2018-12-14] MEDS ORDERED: NALOXONE HCL 0.4 MG/1 ML VIAL/CARP IV PRN (12:03)
[2018-12-14] MEDS: SODIUM CHLORIDE 0.9% 1000ML 1,000 ML IV SCH ×2 (12:25→22:39)
[2018-12-14] MEDS: ACETAMINOPHEN 500 MG TAB PO SCH ×2 (13:00→22:22)
[2018-12-14] MEDS: KETOROLAC 30 MG/ML VIAL IV SCH ×2 (13:00→18:47)
[2018-12-14] MEDS: OXYCODONE HCL IR 5 MG TAB (IMMEDIATE RELEASE) PO PRN ×2 (13:00→23:43)
[2018-12-14] MEDS: CEFAZOLIN 2000MG 2,000 MG/15 ML SYR IV SCH ×2 (14:30→22:30)
[2018-12-14] MEDS ORDERED: CHECK SCOPOLAMINE PATCH PLACEMENT SCH (16:00)
[2018-12-14] MEDS: ASPIRIN 81 MG ECTAB PO SCH (20:30)
[2018-12-14] MEDS: DOCUSATE SODIUM 100 MG CAP PO SCH (20:30)
[2018-12-14] MEDS: OMEGA-3 (PURIFIED FISH OIL) 1 GM CAP PO SCH (20:30)
[2018-12-14] MEDS ORDERED: SENNA 8.6 MG TAB PO SCH (21:00)
[2018-12-14] MEDS ORDERED: VALSARTAN 80 MG TAB PO SCH (21:00)
[2018-12-14] MEDS ORDERED: METOPROLOL SUCC 25MG EXT REL TAB PO SCH (21:00)
[2018-12-15] MEDS: KETOROLAC 30 MG/ML VIAL IV SCH ×4 (00:26→18:54)
[2018-12-15] MEDS: ACETAMINOPHEN 500 MG TAB PO SCH ×2 (05:52→13:59)
[2018-12-15 07:17] LABS: Hematocrit (blood only) 32.7 % (37-47); Hemoglobin 10.6 g/dL (12.0-16.0); Mean Corpuscular Hgb Conc 32.4 g/dL (32-36); Mean Corpuscular Volume 93.4 fL (80-100); Mean Platelet Volume 10.1 fL (7.4-10.4); Platelet Count 189 K/uL (130-400); RDW Coefficient of Variation 13.7 % (11.5-14.5); RDW Standard Deviation 46.6 fL (36.4-46.3); White Blood Count 12.74 K/uL (4.8-10.8)
[2018-12-15 07:52] LABS: BUN Creatinine Ratio 19.3 (10-20); Calcium 9.1 mg/dl (8.5-10.1); Est GFR (African American) 96.3; Est GFR (Non-African American) 83.1; Potassium 4.1 mmol/L (3.5-5.1)
--- NOTE | 2018-12-15 08:08 | Orthopedic Progress Note ---
Date of Service December 15, 2018 Assessment & Plan (1) Osteoarthritis of left knee: Overall she is doing very well. She will be seen by physical therapy this morning for ambulation and range of motion exercises. She is on aspirin for DVT prophylaxis. We will discharge her to home later this morning. She will follow-up with orthopedics in 2 weeks. Present on Admission?: Yes Subjective Debility was seen and examined at bedside this morning. Overall she is doing very well. She is having a little soreness in the knee but is not too bad. She was able to get some sleep last night. She has already been up and ambulating. She is on aspirin for DVT prophylaxis. She has no complaints. Physical Exam Musculoskeletal: On physical examination of the left knee, the dressing is clean and dry. She is active dorsiflexion and plantarflexion of the left ankle. Sensations intact throughout. Results & Data Vital Signs (Past 12 Hours) Vital Signs Temp Pulse Resp BP Pulse Ox 12/15/18 06:53 36.5 C 54 L 17 113/68 93 12/15/18 03:05 36.5 C 67 18 113/66 96 12/15/18 00:34 36.6 C 60 17 111/70 90 12/14/18 20:29 64 111/62 Laboratory Results H & H 11/20/18 12/15/18 Range/Units 11:50 06:50 Hgb 13.7 10.6 L (12.0-16.0) g/dL Hct 41.3 32.7 L (37-47) % Coagulation 11/20/18 Range/Units 11:50 INR 1.1 (0.9-1.1) Diagnostic Findings Postoperative x-rays of the left knee show the prosthesis to be in anatomic alignment without any evidence of fracture, dislocation, or loosening. PG Care Time/CCT Total # of Minutes Spent Total Time Spent with Patient: Total time spent is greater than 50% in coordination of care (as documented) at patient's floor/unit and/or counseling patient:
--- NOTE | 2018-12-15 08:11 | Discharge Summary ---
Date of Service December 15, 2018 Admission HPI Per Admitting Provider Caitie is a pleasant 58-year-old female who I did a hip replacement on about 5 months ago. She did very well with that. Unfortunately she is been dealing with a lot of left knee pain. X-rays and clinical examination have been diagnostic for primary osteoarthritis of the left knee. After failing conservative treatment, including multiple injections, she has elected to proceed with a left total knee arthroplasty. Principal Diagnosis Left total knee arthroplasty Discharge Data Allergies Allergy/AdvReac Type Severity Reaction Status Date / Time Penicillins Allergy Unknown RASH, Verified 12/14/18 07:27 FACIAL & NECK SWELLING poison gabriel extract Allergy Unknown RASH Verified 12/14/18 07:27 lisinopril AdvReac Unknown COUGH Verified 12/14/18 07:27 Consultations 12/14/18 12:03 Consult Case Management - Discharge Planning Routine Procedures Performed Operation Date: 12/14/18 08:50 Actual Procedures p Left Total Knee Arthroplasty(Left) - Bryan Mauricio DO Ordered Studies 12/14/18 05:00 US - OR guided needle placemen Routine Hospital Course (1) Osteoarthritis of left knee: On December 14, 2018 Caitie arrived at [facility] and underwent a left total knee arthroplasty without complication. She had a spinal anesthetic and a left adductor nerve block. Postoperatively she was started on aspirin for DVT prophylaxis and discharged to general orthopedic floors. Her hospital course was uneventful. On postop day #1 her H&H was stable and her pain was well controlled. She was able to ambulate well with physical therapy. She was then discharged to home. She will follow-up with orthopedics in 2 weeks. Total Time Total Time Spent Total Time Spent (In Minutes): 20 Discharge Plan Discharge Items Patient Disposition: Home - Home Health Services Reason For Visit: LEFT KNEE DEGENERATIVE JOINT DISEASE Discharge Diagnosis: Left total knee arthroplasty Discharge Goals: Decrease discomfort and Improve function Activity: Per 'Additional Instructions' section Non-emergency contact: Surgeon Call non-emergency contact if: your wound has increased redness and your wound has increased drainage Follow-up/Referrals: Angeles Moreno MD [Primary Care Provider] - Diet: Regular Addtl Provider Instructions: Activity and Therapy Recommendations: * If you are using [facility] then therapy will be provided at your home until they feel you have accomplished all of your goals. * If you are using [facility] then Physical Therapy will be provided until they feel you are ready to start Outpatient Physical Therapy. * If you are not using home therapy then Outpatient Physical Therapy should start about 3-5 days from your day of surgery. Therapy will last about 6-10 weeks * It is important not to put a pillow under your knee when you are relaxing or sleeping. It is just as important to make sure you are getting your knee perfectly straight as it is to regain your knee bend. * You were shown a series of exercises in the hospital. Do these exercises three times each day including the exercises you were shown in physical therapy. * Get up and walk several times each day. For the first four weeks, try not to stand or walk for more than one hour at a time. If you do stand or walk for more than one hour, you will not hurt anything, but your leg will likely swell. * As you feel comfortable, you may change from the walker or crutches to a cane and then to independent walking. Medications: * Narcotic You will likely be sent home from the hospital with a prescription for the narcotic pain medication that worked best throughout your stay. * Aspirin Most patients will be required to take Aspirin 81mg twice a day for 6 weeks after surgery. This is obtained [id number] and a prescription is not necessary. * Other medications may be prescribed for specific circumstances. If you have any questions, please call the office at . * Resume previous home medications unless otherwise instructed TEDs/Elastic Stockings: The white elastic stockings help limit swelling and prevent blood clots from forming in your legs.~ The more you wear them, the more they work. Wear them for six weeks. Dressing Care: If the incision is not draining then you may leave the gianna open to air. If there is a little bit of drainage or if the gianna are getting stuck on your clothing then cover the incision with a dry dressing. The gianna will be removed at your 2 week follow-up appointment. Showering: You may shower 5 days from the day of surgery. Let the soapy shower water run over the gianna and pat them dry. Do not scrub or soak the incision. Things To Watch For: * Drainage from the incision site that occurs more than one week after your surgery. * Increased redness at the incision site. * Fever above 102 degrees Fahrenheit. * Unusual chest pain or shortness of breath. * Call [facility] at with any of the above problems Follow-Up Visit: Follow-up with Dr. Mauricio 2-3 weeks after your day of surgery. An appointment was probably scheduled when you signed-up for surgery in the office. If you have any questions call Office Instructions: More detailed instructions as well as Frequently Asked Questions were provided in a folder by our office when you signed-up for surgery. Please review these instructions when you get home. If you have any further questions or concerns, please feel free to call the office at [phone] Prescriptions: New oxycodone 5 mg Tablet 5 - 10 mg PO Q4H PRN (Reason: pain) Qty: 40 RF: 0 Continued multivitamin Tablet 1 tab PO DAILY RF: 0 vitamin B complex Tablet 1 tab PO DAILY RF: 0 magnesium 250 mg Tablet 1,250 mg PO DAILY RF: 0 cholecalciferol (vitamin D3) [Vitamin D3] 2,000 unit Tablet 2,000 unit PO DAILY RF: 0 vitamin K2 40 mcg Tablet 40 mcg PO DAILY RF: 0 metoprolol succinate 25 mg Tablet Extended Release 24 Hr 25 mg PO HS RF: 0 aspirin [Ecotrin Low Strength] 81 mg Tablet,Delayed Release (Dr/Ec) 81 mg PO BID Qty: 84 RF: 0 omega 0-uyp-rrz-fish oil [Fish Oil] 1,000 mg (120 mg-180 mg) Capsule 1 cap PO BID RF: 0 valsartan 40 mg Tablet 40 mg PO HS RF: 0 Stand-Alone Forms: [facility] Discharge Orders: Discharge Order (Routine); Ordered 12/15/18 Ordered By: Bryan Mauricio Admission Data Admit Date/Time: 12/14/18 11:09 Attending Provider: Bryan Mauricio Admit Provider: Bryan Mauricio Primary Care Provider: Angeles Moreno Service: Surgical Services
[2018-12-15] MEDS: ASPIRIN 81 MG ECTAB PO SCH (08:54)
[2018-12-15] MEDS: OMEGA-3 (PURIFIED FISH OIL) 1 GM CAP PO SCH (08:54)
[2018-12-15] MEDS: DOCUSATE SODIUM 100 MG CAP PO SCH (08:54)
[2018-12-15] MEDS: OXYCODONE HCL IR 5 MG TAB (IMMEDIATE RELEASE) PO PRN ×3 (08:55→18:55)
[2018-12-15] MEDS ORDERED: MULTIVITAMIN TAB PO SCH (09:00)
[2018-12-15] MEDS ORDERED: MAGNESIUM PO SCH (09:00)
== END 2018-12-15 19:21 | disposition home or self-care (01) | DRG 470 ==
LOC: ASU 06:38 → 3E 11:09
DX: I10 Essential (primary) hypertension; Z79.82 Long term (current) use of aspirin; M17.12 Unilateral primary osteoarthritis, left knee; Z88.8 Allergy status to other drugs, medicaments and biological substances; G47.30 Sleep apnea, unspecified; Z96.643 Presence of artificial hip joint, bilateral; Z91.048 Other nonmedicinal substance allergy status; Z88.0 Allergy status to penicillin; Z68.33 Body mass index [BMI] 33.0-33.9, adult; E66.9 Obesity, unspecified; Z79.899 Other long term (current) drug therapy